=== PATIENT | female | born 1995 | race Hispanic/Latino ===

== ENCOUNTER 2021-02-25 19:22 | Emergency (ER) | payer SELFPAY ==
[~2021-02-25] VITALS: Ht 157.5 cm; Wt 45.4 kg
[2021-02-25] MEDS ORDERED: HYDROCODONE/ACETAMINOPHEN 10/325 MG TAB PO ONE (20:00)
[2021-02-25] MEDS ORDERED: CYCLOBENZAPRINE HCL 10 MG TABLET PO ONE (20:00)
[2021-02-25] MEDS ORDERED: CYCL10TA16 PO (20:31)
[2021-02-25] MEDS ORDERED: NAPR-1180 PO (20:31)
[2021-02-25 20:56] VITALS: BP 132/70
== END 2021-02-25 20:57 | disposition home or self-care (01) ==
LOC: EDH 19:22
DX: S16.1XXA Strain of muscle, fascia and tendon at neck level, initial encounter (principal); S29.012A Strain of muscle and tendon of back wall of thorax, initial encounter; Z79.1 Long term (current) use of non-steroidal anti-inflammatories (NSAID); V49.3XXA Car occupant (driver) (passenger) injured in unspecified nontraffic accident, initial encounter; Y93.89 Activity, other specified; Y92.89 Other specified places as the place of occurrence of the external cause; Y99.8 Other external cause status
CPT/HCPCS: 72040; 73010; 81025